=== PATIENT | female | born 1960 | race Hispanic/Latino ===

== ENCOUNTER 2016-09-04 22:41 | Inpatient (IN) | payer MEDICARE, MEDICAID ==
[2016-09-04 22:49] VITALS: BMI 25.4
--- NOTE | 2016-09-04 22:56 | ED PDOC ---
Arrival/HPI - General Time Seen by Provider: 09/04/16 22:51 Historian: Patient, EMS - History of Present Illness Narrative History of Present Illness (Text): 09/04/16 22:53 56 y.o. female whose past medical history includes etoh abuse, Bipolar, and schizoaffective disorder who is sent for psych admission from [facility] in [facility]. Patient was evaluated there and medically cleared and needs psych admission for auditory hallucinations with voices telling her to kill herself. Patient denies any acute physical symptoms. Family/Social History Family/Social History: Unknown Family HX Allergies/Home Meds Allergies/Adverse Reactions: Allergies fluphenazine [From Prolixin] Allergy (Verified 09/04/16 22:49) RASH haloperidol [From Haldol] Allergy (Verified 09/04/16 22:49) RASH Review of Systems - Physician Review All systems were reviewed & negative as marked: Yes - Review of Systems Respiratory: Normal Cardiovascular: Normal Gastrointestinal: Abdominal Pain (chronic; no changes). absent: Constipation, Diarrhea, Nausea, Vomiting Musculoskeletal: Arthralgias (chronic, no changes) Endocrine: Normal. absent: Diaphoresis, Polyuria, Polydipsia Hemo/Lymphatic: Normal Psychiatric: Suicidal Ideation, Other (hallucinations) Physical Exam Vital Signs Temp Pulse Resp BP Pulse Ox 09/04/16 22:42 98.2 F 71 12 113/72 96 Temperature: Afebrile Blood Pressure: Normal Pulse: Regular Respiratory Rate: Normal Appearance: Positive for: Well-Appearing, Non-Toxic, Comfortable Pain Distress: None Mental Status: Positive for: Alert and Oriented X 3 - Systems Exam Head: Present: Atraumatic, Normocephalic Pupils: Present: PERRL Conjunctiva: Present: Normal Mouth: Present: Moist Mucous Membranes Pharnyx: Present: Normal. No: ERYTHEMA, EXUDATE Neck: Present: Normal Range of Motion Respiratory/Chest: Present: Clear to Auscultation, Good Air Exchange. No: Respiratory Distress, Accessory Muscle Use Cardiovascular: Present: Regular Rate and Rhythm, Normal S1, S2. No: Murmurs Abdomen: Present: Normal Bowel Sounds. No: Tenderness, Distention, Peritoneal Signs Back: Present: Normal Inspection Upper Extremity: Present: Normal Inspection. No: Cyanosis, Edema Lower Extremity: Present: Normal Inspection. No: Edema Neurological: Present: GCS=15, CN II-XII Intact, Speech Normal Skin: Present: Warm, Dry, Normal Color. No: Rashes Psychiatric: Present: Oriented x 3, Suicidal Ideation Medical Decision Making ED Course and Treatment: 09/04/16 22:57 Patient [facility] for auditory hallucinations and SI. Disposition/Present on Arrival - Present on Arrival Any Indicators Present on Arrival: No - Disposition Have Diagnosis and Disposition been Completed?: Yes Diagnosis: Auditory hallucinations, Suicidal ideation Disposition: HOSPITALIZED Disposition Time: 22:50 Patient Plan: Admission Condition: FAIR
[2016-09-05] MEDS ORDERED: Alum-Mag Hydrox-Simethicone Susp (30 mL) PO PRN (00:53)
[2016-09-05] MEDS ORDERED: Magnesium Hydroxide Susp 30 ml UD PO PRN (00:58)
--- NOTE | 2016-09-05 06:19 | PCM.BM ---
<Pee Umana - Last Filed: 09/05/16 06:14> Treatment Plan Problems - Problems identified on initial assessmt suicidal ideation Date Initiated: 09/05/16 Time Initiated: 00:40 Assessment reference: NA Status: Active depression Date Initiated: 09/05/16 Time Initiated: 00:40 Assessment reference: NA Status: Active hallucination Date Initiated: 09/05/16 Time Initiated: 00:40 Assessment reference: NA Status: Active Treatment assets and liabiliti Patient Assests: self-reliant, ADL independent Patient Liabilities: live alone, financial problems, substance abuse - Milieu Protocol Maintain good personal hygiene: daily Encourage regular showers, daily Remind patient to perform daily oral care Maintain personal safety: every shift Educate patient to report safety concerns to staff, every shift Monitor environment for contraband/sharps Medication safety: Monitor for expected outcome, potential side effects: every shift, Assess barriers to learning: every shift, Assess readiness for medication education: every shift Family Contact - Goals for Treatment Patient goals for treatment: "Help with self-confidence" Discharge/Continuing Care - Education Needs Education Needs: Patient Medication, Patient Coping Skills - Discharge Discharge Criteria: Free of Suicidal thoughts, Normal sleep pattern <Ryan Daniels H - Last Filed: 09/05/16 14:12> - Diagnosis (1) Schizoaffective disorder Status: Chronic Interventions: 09/05/16 14:14 * Assess/adjust medications daily and /or as needed * See patient on an individual basis 7x/week to assess status of hallucinations * Discuss risks, benefits, side effects and alternatives of medications * (2) Auditory hallucinations Status: Chronic Interventions: 09/05/16 14:16 * Assess/adjust medications daily and /or as needed * Discuss risks, benefits, sided effects and alternatives of medications * See patient on an individual basis 7x/week to assess level of delusional thoughts/ideation * (3) Suicidal ideation Status: Acute Interventions: 09/05/16 14:16 * Assess/adjust medications daily and /or as needed * Discuss risks, benefits, side effects and alternatives of medications * See patient on an individual basis 7x/week to assess level of suicidal thoughts * <Jany Simpson - Last Filed: 09/05/16 15:06> Family Contact Family involvement: Famliy/SO not involved - Outside Agency Agency 1 Care involvment: Following patient during stay, Information-sharing Agency contact name: Juany Murray NITA Megha Wayne Agency contact number: [phone] <Mckayla Morrison - Last Filed: 09/06/16 11:37> Family Contact - Outside Agency Agency 1 Care involvment: Following patient during stay, Information-sharing Agency contact name: Juany Murray NITA Megha Wayne Agency contact number: [phone] [facility] invol[facility]ment: Following patient during stay Agency contact name: Azalia Wayne, [facility] Agency contact number: [phone] <Bacilio Khan - Last Filed: 09/10/16 19:17> Treatment assets and liabiliti Patient Assests: cooperative, ADL independent, cognitively intact Patient Liabilities: financial problems, poor support system - Milieu Protocol Maintain good personal hygiene: every shift Encourage regular showers, every shift Remind patient to perform daily oral care, every shift Assist patient to perform ADL's Maintain personal safety: every shift Educate patient to report safety concerns to staff, every shift Monitor environment for contraband/sharps Medication safety: Monitor for expected outcome, potential side effects: every shift, Assess barriers to learning: every shift, Assess readiness for medication education: every shift
[2016-09-05 08:26] LABS: HDL CHOLESTEROL 67 mg/dL (29-60)
[2016-09-05 08:37] LABS: LDL CHOLESTEROL 80 mg/dL (0-129)
[2016-09-05] MEDS: Lithium Carbonate ER Tab 450 MG PO SCH ×2 (08:43→16:20)
--- NOTE | 2016-09-05 18:02 | PCM.PSYCH ---
Initial Psychiatric Evaluation - Initial Psychiatric Evaluation Chief Complaint (in patient's own words): patient has been admitted in an agitated state and with auditory hallucinations , some of command. This appeared to be an exacerbation of pre-existing the ongoing auditory hallucinations dating back many years Patient's Reaction to Hospitalization: patient voluntarily hospitalized and looking for some symptom relief History of Present Illness and Precipitating Events: patient cannot identify a specific precipitant to an ongoing chronic condition of auditory hallucinations, sometimes of command. This has led to a number of hospitalizations, most recently at [facility] 2 months ago. She was first hospitalized in 1982 at the onset of this condition. The patient also drinks alcohol, at a level that she is no doubt of the underestimating. The extent to which this contributes to her symptomatology is unclear at this time Current Medications: Active Medications Generic Name Dose Route Start Last Admin Trade Name Freq PRN Reason Stop Dose Admin Acetaminophen 650 mg 09/05/16 00:53 Tylenol 325mg Tab PO Q4 PRN Pain, moderate (4-7) Al Hydrox/Mg Hydrox/Simethicone 30 ml 09/05/16 00:53 Maalox Plus 30 Ml PO DAILY PRN Upset Stomach [place] Carbonate 450 mg 09/05/16 08:00 09/05/16 16:20 [place] Carbonate PO 450 mg BID ALBERTA Administration Lorazepam 1 mg 09/05/16 22:00 Ativan PO HS ALBERTA Protocol Magnesium Hydroxide 30 ml 09/05/16 00:58 Milk Of Magnesia PO DAILY PRN Constipation Olanzapine 20 mg 09/05/16 22:00 Zyprexa PO HS ALBERTA Protocol Past Psychiatric History - Past Psychiatric History Prior Psychiatric Treatment: attends a day program presently. Has a identified case therapist from [facility].. H Nature of Treatment: ssymptom control Explanation of prior treatment: appears to be ongoing with exacerbation and remission his History of Abuse: uncertain History of ETOH/Drug Use: drinks alcohol to excess. Poor historian with regard to actual pattern or amount or drinks of preference History of Family Illness: father of alcohol-related causes Pertinent Medical Hx (Current Medical&Sleep Prob, Allergies): Allergies Allergy/AdvReac Type Severity Reaction Status Date / Time fluphenazine [From Prolixin] Allergy RASH Verified 09/05/16 07:42 haloperidol [From Haldol] Allergy RASH Verified 09/05/16 07:42 [place] Carbonate [[place] Carbonate 300MG] 450 mg PO BID 09/05/16 Olanzapine [Zyprexa] 20 mg PO HS 09/05/16 traZODone 100 mg PO HS 09/05/16 Review of Systems - Constitutional Constitutional: UN - EENT Eyes: As Per HPI, UNREMARKABLE Ears: UNREMARKABLE Nose/Mouth/Throat: UNREMARKABLE - Breasts Breasts: UNREMARKABLE - Cardiovascular Cardiovascular: UNREMARKABLE - Respiratory Respiratory: UNREMARKABLE - Gastrointestinal Gastrointestinal: UNREMARKABLE - Genitourinary Genitourinary: UNREMARKABLE - Reproductive: Female Reproductive:Female: UNREMARKABLE - Menstruation Menstruation: UNREMARKABLE - Musculoskeletal Musculoskeletal: UNREMARKABLE - Integumentary Integumentary: UNREMARKABLE - Neurological Neurological: UNREMARKABLE - Psychiatric Psychiatric: Auditory Hallucinations, Behavioral Changes, Depression, Hallucinations - Endocrine Endocrine: UNREMARKABLE - Hematologic/Lymphatic Hematologic: UNREMARKABLE Mental Status Examination - Affect Affect: Constricted - Motor Activity Motor Activity: Other - Reliability in Providing Information Reliability in Providing Information: Fair - Speech Speech: Organized - Mood Mood: Other (irritable) - Formal Thought Process Formal Thought Process: Hallucinations - Hallucinations/Delusions Hallucinations: Auditory - Obsessions/Compulsions Obsessions: No Compulsions: No - Cognitive Functions Orientation: Person, Place, Situation, Time Sensorium: Alert Attention/Concentration: Attentive Estimate of Intelligence: Average Judgement: Imparied, as evidence by: Lack of insight into illness Memory: Recent intact, as evidence by: Other, Remote intact, as evidenced by: Other - Risk Risk: Suicidal - Strength & Assets Inventory Strength & Assets Inventory: Education, Other (attends a day program. Has [employer] worker assigned.) - Limitations Limitations: Other (chronicity) DSM 5 DX - DSM 5 DSM 5 Diagnosis: schizoaffective disorder Alcohol use disorder - Recommended/Plan of Treatment Treatment Recommendations and Plan of Treatment: engage in individual and group milieu therapy. Will offer symptom stabilization. Will evaluate psychosocial living situation Projected ELOS: oone week Prognosis: guarded Discharge Plan and Discharge Criteria[facility] - Smoking Cessation Smoking Cessation Initiated: No Reason for not providing: patient refuses
[2016-09-06] MEDS: Lithium Carbonate ER Tab 450 MG PO SCH ×2 (08:13→16:16)
[2016-09-06] MEDS: Pantoprazole 40 mg EC Tab PO SCH (16:16)
--- NOTE | 2016-09-06 22:04 | PCM.PYCHPN ---
Psychiatric Progress Note - Psychiatric Progress Note Patient seen today, length of contact: 30 Patient Chief Complaint: patient has been admitted in an agitated state and with auditory hallucinations , some of command. This appeared to be an exacerbation of pre-existing the ongoing auditory hallucinations dating back many years Problems Identified/Issues Discussed: remains isolative and irritable. Still complaining of auditory hallucinations Medical Problems: appears to be ongoing with exacerbation and remission his Diagnostic Results: HDL chol 67. v.s. wnl DSM 5 Symptoms Update: as noted above Medication Change: No Medical Record Reviewed: Yes Mental Status Examination - Cognitive Function Orientation: Person, Place, Situation, Time Memory: Intact Attention: WNL Concentration: WNL Association: [facility] Fund of Knowledge: [facility] Decription of patient's judgement and insights: marginal - Mood Mood: Other (irritable) - Affect Affect: Constricted - Speech Speech: Appropriate - Formal Thought Process Formal Thought Process: Hallucinations Psychotic Thoughts and Behaviors: complains of aud hallucinations. irritable - Suicidal Ideation Plan: uncertain - Homicidal Ideation Homicidal Ideation: No Goal/Treatment Plan - Goal/Treatment Plan Progress Toward Problem(s) and Goals/Treatment Plan: engage in individual and group milieu therapy. Will offer symptom stabilization. Will evaluate psychosocial living situation
--- NOTE | 2016-09-07 02:08 | CON ---
DATE: 09/06/2016 PRIMARY DOCTOR: Dr. Frederick. REASON FOR CONSULTATION: Medical management of the patient's epigastric pain. HISTORY OF PRESENT ILLNESS: This is a 56-year-old female, who is coming into the hospital with past medical history of alcohol abuse, schizoaffective disorder with bipolar disorder. The patient was brought in because she was having auditory hallucinations *------*. The patient has a history of having auditory hallucinations for many years. She has had multiple hospitalizations. She also is complaining of epigastric pain, she said she has had this for many years. She had been using [id number] antireflux medications which were helping her. She denies any chest pain or shortness of breath. No nausea, no vomiting. No dysuria or frequency. No nocturia. No weakness in the arms or the legs. No headaches. She does drink alcohol, significant amounts, but not open to how much. FAMILY HISTORY: Noncontributory. SOCIAL HISTORY: She does drink alcohol. She states she smokes a pack every 3 days. She is not working. REVIEW OF SYSTEMS: All the review of systems are within normal limits except what is mentioned. ALLERGIES: SHE HAS ALLERGIES TO TIZANIDINE AND HALDOL. MEDICATIONS: She is on psychiatric medications. She does not remember the names. PHYSICAL EXAMINATION GENERAL: The patient lying in bed, comfortable. No acute distress. VITAL SIGNS: Temperature is 98.5, pulse of 57, blood pressure is 99/54, respirations 20. Height is 5 feet 5 inches. Weight is 125. BMI is 20. HEENT: Atraumatic and normocephalic. EOMI. PERRLA. Anicteric sclerae. Moist mucosa. No oral lesion. NECK: No JVD, adenopathy, or thyromegaly. No anterior or posterior cervical adenopathy. CARDIOVASCULAR: S1 and S2 is regular. No murmurs, rubs, or gallops. LUNGS: Good bilateral air entry. No wheezes, rales, or rhonchi. ABDOMEN: Bowel sounds are positive. Soft, nontender, nondistended. No hepatosplenomegaly. NEUROLOGIC: No facial asymmetry. Tongue is midline. No uvula deviation. Power is 5/5 upper extremity and lower extremity. Sensation is intact. PSYCHIATRIC: Alert, awake, and oriented x3. Good insight, normal affect. No hallucinations. EXTREMITIES: Lower extremities, no cyanosis, clubbing, or edema with 2+ pedal pulses. : No CVA tenderness. SKIN: No rashes or nodules. LABORATORY DATA: They have been reviewed. The patient has an LDL of 80, triglycerides of 63. ASSESSMENT: 1. Gastroesophageal reflux disease. 2. Schizoaffective disorder. 3. Auditory hallucinations. 4. Smoking. 5. Suicidal ideation. 6. Alcohol abuse. PLAN: The patient is going to be continued on her psychiatric medications. She is on [place], Ativan for her anxiety. She is on Protonix. She is going to get Tylenol p.r.n. She is on a regular diet. At this point, the patient has no other active medical issues. She also has been placed on aluminum hydroxide and magnesium p.r.n. We are signing off at this point. Re-consult if need be. Shiraz Yi MD
[2016-09-07] MEDS ORDERED: DiphenhydrAMINE 50 mg/ml Inj IM STA (09:15)
[2016-09-07] MEDS: Lithium Carbonate ER Tab 450 MG PO SCH ×2 (09:43→18:23)
[2016-09-07] MEDS: Pantoprazole 40 mg EC Tab PO SCH (09:44)
--- NOTE | 2016-09-08 00:13 | PN ---
The Patient is a 56-year-old single white female with what appears to be a schizoaffective disorder. The patient is alert, oriented to 3 spheres. She had in more problematic this morning and she had become agitated, necessitating p.r.n. of Geodon. She already is being maintained on lithium 450 mg b.i.d., Zyprexa 20 mg at bedtime. Blood pressure 97/63, pulse 58, temperature 98.3, respiratory rate 20. The patient has been requesting placemen at a boarding home. She does not want to report back to the residency/apartment where she had been residing because of The patient has noticed alert, oriented, flighty, speaking of a "stinking voice," seems also otherwise pre-occupied, lacking in insight. [place] level will be checked on this patient. Ryan Daniels MD/ PhD
[2016-09-08] MEDS: Pantoprazole 40 mg EC Tab PO SCH (06:59)
--- NOTE | 2016-09-08 08:55 | PCM.PYCHPN ---
Psychiatric Progress Note - Psychiatric Progress Note Patient seen today, length of contact: 25 min Patient Chief Complaint: "good" Problems Identified/Issues Discussed: I reviewed assessment and recent notes. Patient was interviewed at bedside. Patient presents as unkempt with bizarre make up. She is superficially cooperative. Denies any new concerns and states her mood is "good". Affect is labile. Appears preoccupied and disengaged but not responding to internal stimuli. Denies hallucinations. Patient is tolerating medications and denies any new discomfort or pain. Nursing notes indicate that patient can be labile and irritable. Minimal interaction with peers but visible on the unit at times watching tv. There were no major behavioral issues overnight. Diagnostic Results: Schizoaffective Disorder Alcohol Use Disorder, Severe Medication Change: No Medical Record Reviewed: Yes Mental Status Examination - Cognitive Function Orientation: Person, Place, Situation, Time Memory: Intact Attention: WNL Concentration: WNL Association: WN Fund of Knowledge: WN - Mood Mood: Other ("good") - Affect Affect: Constricted, Other (labile, irritable) - Speech Speech: Appropriate - Formal Thought Process Formal Thought Process: Hallucinations (denies currently) - Suicidal Ideation Suicidal Ideation: No - Homicidal Ideation Homicidal Ideation: No Goal/Treatment Plan - Goal/Treatment Plan Progress Toward Problem(s) and Goals/Treatment Plan: * c/w current tx and plan * No new weekend labs * Vitals reviewed and noted below: Selected Entries 09/07/16 09/07/16 07:38 16:00 Temperature 98.3 F Pulse Rate 58 L 69 Respiratory 20 Rate Blood Pressure 97/63 L 123/82
[2016-09-08] MEDS: Lithium Carbonate ER Tab 450 MG PO SCH ×2 (09:13→18:13)
[2016-09-09] MEDS: Pantoprazole 40 mg EC Tab PO SCH (07:20)
--- NOTE | 2016-09-09 08:51 | PCM.PYCHPN ---
Psychiatric Progress Note - Psychiatric Progress Note Patient seen today, length of contact: 25 min Patient Chief Complaint: "good" Problems Identified/Issues Discussed: I reviewed recent notes and patient was interviewed at bedside. Patient presents as unkempt with bizarre make-up. She is superficially cooperative. Denies any new concerns and states her mood is "good". Affect is labile. Appears preoccupied and disengaged but not responding to internal stimuli. Denies hallucinations. Patient is tolerating medications and denies any new discomfort or pain. Nursing notes indicate that patient is labile and irritable. Can be argumentative with peers. Otherwise she has minimal interaction with others. Remains unpredictable. There were no major behavioral issues over the weekend. Diagnostic Results: Schizoaffective Disorder Alcohol Use Disorder, Severe Medication Change: No Medical Record Reviewed: Yes Mental Status Examination - Cognitive Function Orientation: Person, Place, Situation, Time Memory: Intact Attention: WNL Concentration: WNL Association: WN Fund of Knowledge: WN - Mood Mood: Other ("good") - Affect Affect: Constricted, Other (labile, irritable) - Speech Speech: Appropriate - Formal Thought Process Formal Thought Process: Hallucinations (denies currently) - Suicidal Ideation Suicidal Ideation: No - Homicidal Ideation Homicidal Ideation: No Goal/Treatment Plan - Goal/Treatment Plan Progress Toward Problem(s) and Goals/Treatment Plan: * c/w current tx and plan * No new weekend labs * Vitals reviewed and noted below: Selected Entries 09/07/16 09/08/16 16:00 06:40 Temperature 97.9 F Pulse Rate 69 60 Respiratory 17 Rate Blood Pressure 123/82 98/60 L
[2016-09-09] MEDS: Lithium Carbonate ER Tab 450 MG PO SCH ×2 (09:16→16:15)
[2016-09-10] MEDS: Pantoprazole 40 mg EC Tab PO SCH (06:33)
[2016-09-10] MEDS: Lithium Carbonate ER Tab 450 MG PO SCH (08:57)
--- NOTE | 2016-09-10 19:53 | PCM.PYCHPN ---
Psychiatric Progress Note - Psychiatric Progress Note Patient seen today, length of contact: 25 min Patient Chief Complaint: patient has been admitted in an agitated state and with auditory hallucinations , some of command. This appeared to be an exacerbation of pre-existing the ongoing auditory hallucinations dating back many years Problems Identified/Issues Discussed: remains isolative and irritable. Still complaining of auditory hallucinations Medical Problems: appears to be ongoing with exacerbation and remission his Diagnostic Results: HDL chol 67. v.s. wnl DSM 5 Symptoms Update: remains emotionally labile,irritable,paranoid and lacking in insight Medication Change: No Medical Record Reviewed: Yes Mental Status Examination - Cognitive Function Orientation: Person, Place, Situation, Time Memory: Intact Attention: WNL Concentration: WNL Association: [facility] Fund of Knowledge: [facility] - Mood Mood: Other ("labile) - Affect Affect: Constricted, Other (labile, irritable) - Speech Speech: Appropriate, Pressured - Formal Thought Process Formal Thought Process: Hallucinations (denies currently), Other Psychotic Thoughts and Behaviors: can be paranoid - Suicidal Ideation Suicidal Ideation: No - Homicidal Ideation Homicidal Ideation: No Goal/Treatment Plan - Goal/Treatment Plan Need for Continued Stay: Remain at risks for inpatient hospitalization, Discharge may exacerbated symptoms, Severe functional impairment Progress Toward Problem(s) and Goals/Treatment Plan: engage in individual and group milieu therapy. Will offer symptom stabilization. Will evaluate psychosocial living situation will check li level
[2016-09-11] MEDS: Pantoprazole 40 mg EC Tab PO SCH (06:10)
[2016-09-11 06:39] VITALS: O2SAT 97
[2016-09-11] MEDS: Lithium Carbonate ER Tab 450 MG PO SCH ×2 (08:56→08:57)
[2016-09-12] MEDS: Pantoprazole 40 mg EC Tab PO SCH (06:29)
[2016-09-12] MEDS: Lithium Carbonate ER Tab 450 MG PO SCH (08:49)
--- NOTE | 2016-09-12 09:44 | PN ---
The patient is 56-year-old single white female, who has been engaging in disorganized and agitated thinking and behavior. She is alert and oriented to x3, but she appears inappropriate and the amount of makeup she puts on. She has significant periods of thought disorganization. She is on 1350 mg of lithium daily, Zyprexa has been increasing from 20 mg to 30 mg per day. I will get a lithium level in the a.m. Blood pressure 95/57, pulse 68, temperature 97.2, respiratory rate . Ryan Daniels MD/ PhD
--- NOTE | 2016-09-12 16:22 | PCM.BM ---
<CalvinShivaJany Y - Last Filed: 09/12/16 16:22> Treatment Plan Problems - Problems identified on initial assessmt suicidal ideation Date Initiated: 09/05/16 Time Initiated: 00:40 Assessment reference: NA Status: Active depression Date Initiated: 09/05/16 Time Initiated: 00:40 Assessment reference: NA Status: Active hallucination Date Initiated: 09/05/16 Time Initiated: 00:40 Assessment reference: NA Status: Active Treatment assets and liabiliti Patient Assests: cooperative, ADL independent, cognitively intact Patient Liabilities: financial problems, poor support system - Milieu Protocol Maintain good personal hygiene: every shift Encourage regular showers, every shift Remind patient to perform daily oral care, every shift Assist patient to perform ADL's Maintain personal safety: every shift Educate patient to report safety concerns to staff, every shift Monitor environment for contraband/sharps Medication safety: Monitor for expected outcome, potential side effects: every shift, Assess barriers to learning: every shift, Assess readiness for medication education: every shift Milieu Narrative: engage in individual and group milieu therapy. Will offer symptom stabilization. Will evaluate psychosocial living situation will check li level Family Contact Family involvement: Famliy/SO not involved - Outside Agency Agency 1 Care involvment: Following patient during stay, Information-sharing Agency contact name: NITA Frederick Darcey Dean Agency contact number: [phone] [facility] Following [facility] during stay [facility] Agency contact number: [phone] - Goals for Treatment Patient goals for treatment: "I wanna be placed in [facility]." Discharge/Continuing Care - Education Needs Education Needs: Patient Medication, Patient Coping Skills - Discharge Discharge Criteria: Free of Suicidal thoughts, Normal sleep pattern - Treatment Team Participation Patient/Family/SO Statement: engage in individual and group milieu therapy. Will offer symptom stabilization. Will evaluate psychosocial living situation will check li level Treatment Plan Review - Problem suicidal ideation Time Initiated: 00:40 depression Time Initiated: 00:40 hallucination Time Initiated: 00:40 <Meena Ortiz - Last Filed: 09/12/16 16:33> Treatment Plan Review Patient participation: Yes Additional Comments: PT VERBALIZED WANTS TO GO HOME TODAY.REMAIN WITH LABILE AND IRRITABLE MOOD.REMAIN ADMITS TO HEARING SOUNDS AND HAVING DELUSIONS OF PEOPLE WHO ARE WELL KNOWN TALKS TO HER.CONTINUE WITH [place] CARE PLAN.NO D/C PLAN OF TODAY. <Mckayla Morrison - Last Filed: 09/17/16 16:27>
--- NOTE | 2016-09-12 17:23 | PCM.PYCHPN ---
Psychiatric Progress Note - Psychiatric Progress Note Patient seen today, length of contact: 25 min Patient Chief Complaint: patient has been admitted in an agitated state and with auditory hallucinations , some of command. This appeared to be an exacerbation of pre-existing the ongoing auditory hallucinations dating back many years Problems Identified/Issues Discussed: remains isolative and irritable. Still complaining of auditory hallucinations Medical Problems: appears to be ongoing with exacerbation and remission his Diagnostic Results: HDL chol 67. v.s. wnl DSM 5 Symptoms Update: Met with patient in treatment team. Patient remains emotionally labile and bizarre. Impulsive and labile. Lacks insight. Uses facial makeup inappropriately and lavishly. Medication Change: No Medical Record Reviewed: Yes Mental Status Examination - Cognitive Function Orientation: Person (Hypomanic), Place, Situation, Time Memory: Intact Attention: WNL Concentration: WNL Association: [facility] Fund of Knowledge: [facility] - Mood Mood: Other ("labile) - Affect Affect: Constricted, Other (labile, irritable) - Speech Speech: Appropriate, Pressured - Formal Thought Process Formal Thought Process: Hallucinations (denies currently), Other Psychotic Thoughts and Behaviors: can be paranoid - Suicidal Ideation Suicidal Ideation: No - Homicidal Ideation Homicidal Ideation: No Goal/Treatment Plan - Goal/Treatment Plan Need for Continued Stay: Remain at risks for inpatient hospitalization, Discharge may exacerbated symptoms, Severe functional impairment Progress Toward Problem(s) and Goals/Treatment Plan: engage in individual and group milieu therapy. Will offer symptom stabilization. Will evaluate psychosocial living situation will check li level We'll continue to work on stabilization through therapy group and individualat the pharmacotherapy
[2016-09-13 07:37] VITALS: RESP 20
[2016-09-13] MEDS: Pantoprazole 40 mg EC Tab PO SCH (08:10)
[2016-09-13] MEDS: Lithium Carbonate ER Tab 450 MG PO SCH (08:10)
--- NOTE | 2016-09-13 14:58 | PCM.PYCHPN ---
Psychiatric Progress Note - Psychiatric Progress Note Patient seen today, length of contact: 25 min Patient Chief Complaint: patient has been admitted in an agitated state and with auditory hallucinations , some of command. This appeared to be an exacerbation of pre-existing the ongoing auditory hallucinations dating back many years Problems Identified/Issues Discussed: remains isolative and irritable. Still complaining of auditory hallucinations Medical Problems: appears to be ongoing with exacerbation and remission his Diagnostic Results: HDL chol 67. v.s. wnl DSM 5 Symptoms Update: Patient remains problematic in her presentation. Still appears hyperactive, making herself up excessively, insisting that she is well enough to leave while still being in a manic/hypomanic state, lacking in insight and poor judgment. Unfortunately her baseline state is not that clear and this may be approximating that dysfunctional state although one can't be sure at this juncture Medication Change: No Medical Record Reviewed: Yes Consults ordered or reviewed: Consultations reviewed Mental Status Examination - Cognitive Function Orientation: Person, Place, Situation, Time Memory: Intact Attention: WNL Concentration: WNL Association: [facility] Fund of Knowledge: [facility] - Mood Mood: Other ("labile) - Affect Affect: Constricted, Other (labile, irritable) - Speech Speech: Appropriate, Pressured - Formal Thought Process Formal Thought Process: Other Psychotic Thoughts and Behaviors: can be paranoid - Suicidal Ideation Suicidal Ideation: No - Homicidal Ideation Homicidal Ideation: No Goal/Treatment Plan - Goal/Treatment Plan Need for Continued Stay: Remain at risks for inpatient hospitalization, Discharge may exacerbated symptoms, Severe functional impairment Progress Toward Problem(s) and Goals/Treatment Plan: engage in individual and group milieu therapy. Will offer symptom stabilization. Will evaluate psychosocial living situation will check li level Remains dysfunctional, hypomanic, hyperactive, lacking in insight, insisting on going home.
[2016-09-14] MEDS: Pantoprazole 40 mg EC Tab PO SCH (06:52)
[2016-09-14 07:10] VITALS: BP 94/56; PULSE 52; TEMP 98
[2016-09-14] MEDS: Lithium Carbonate ER Tab 450 MG PO SCH (08:39)
== END 2016-09-14 18:15 | disposition home or self-care (01) | DRG 885 ==
LOC: ED 22:41 → ERH 22:51 → PSYC 09-05 00:46
PROVIDERS: ADMIT Psychiatry & Neurology Addiction Medicine; ATTEND Psychiatry & Neurology Addiction Medicine
DX: F25.9 Schizoaffective disorder, unspecified (principal); R45.851 Suicidal ideations; F31.9 Bipolar disorder, unspecified; F10.10 Alcohol abuse, uncomplicated; F17.210 Nicotine dependence, cigarettes, uncomplicated; K21.9 Gastro-esophageal reflux disease without esophagitis; Z59.9 Problem related to housing and economic circumstances, unspecified; Z88.8 Allergy status to other drugs, medicaments and biological substances; R40.2412 Glasgow coma scale score 13-15, at arrival to emergency department; K59.00 Constipation, unspecified